=== PATIENT | female | born 1955 | race African-American/Black ===

== ENCOUNTER 2020-11-20 11:10 | Emergency (ER) | payer OTHER ==
[~2020-11-20] VITALS: Ht 154.9 cm; Wt 59.4 kg
--- NOTE | ~2020-11-20 | EKG ---
[address] [address] ELECTROCARDIOGRAM REPORT Name: WILBER MOSLEY Room #: [facility].#: [id number] Admission: Attend Phys: Discharge: Date of : 51 Report #: [id number] [facility] ED Test Date: 2020-11-20 Test Time: 11:28:24 Pat Name: WILBER MOSLEY Department: Room: Gender: F [employer]: [employer] : 1955 Requested By: Mitchell Bullock Order Number: [id number] MD: Measurements Intervals [place] Rate: 56 P: 53 [place]: 164 QRS: 42 QRSD: 86 T: 263 QT: 450 QTc: 435 Interpretive Statements Sinus rhythm LVH with secondary repolarization abnormality Probable anterior infarct, age indeterminate No previous ECG available for comparison [email or web address] By: [id number] Epiphany MD Alexus /EPI
[2020-11-20] MEDS ORDERED: LIPITOR 40 MG T40 M1 PO (11:25)
[2020-11-20] MEDS ORDERED: POTASSIUM CHLO10 MEQ PO (11:25)
[2020-11-20] MEDS ORDERED: LISINOPRIL10 MG PO (11:25)
[2020-11-20] MEDS ORDERED: CLOPIDOGREL75 MG PO (11:26)
[2020-11-20] MEDS ORDERED: FAMOTIDINE40 MG PO (11:26)
[2020-11-20] MEDS ORDERED: HYDROCHLOROTH12.5 M2 PO (11:26)
[2020-11-20] MEDS ORDERED: AMLODIPINE BESY10 MG PO (11:26)
[2020-11-20] MEDS ORDERED: METOPROLOL TART25 MG PO (11:28)
[2020-11-20 11:47] LABS: ABSOLUTE NEUTROPHILS 3.4 thou/uL (1.4-8.2); BASOPHILS 1.4 % (0.0-2.0); HEMATOCRIT 35.3 % (37.0-47.0); LYMPHOCYTES 21.7 % (24.0-44.0); MCH 30.7 pg (26.0-34.0); MCHC 33.9 g/dL (28.0-37.0); MCV 90.7 fL (80.0-100.0); MONOCYTES 6.8 % (1.0-8.0); PLATELET COUNT 358 thou/uL (150-400); POLYS 60.1 % (36.0-66.0); RDW 14.9 % (10.5-14.5); WBC 5.6 thou/uL (4.0-11.0)
[2020-11-20 11:56] LABS: ANION GAP 7 mmol/L (7-16); BUN 13 mg/dL (7-18); CALCIUM 9.7 mg/dL (8.5-10.1); CHLORIDE 97 mmol/L (98-107); CO2 26 mmol/L (21-32); GLUCOSE 95 mg/dL (74-106); POTASSIUM 4.2 mmol/L (3.5-5.1); SODIUM 130 mmol/L (136-145)
[2020-11-20 12:05] LABS: ALBUMIN 3.9 g/dL (3.4-5.0); SGOT 15 U/L (15-37); SGPT 19 U/L (14-59); TOTAL BILIRUBIN 0.4 mg/dL (0.2-1.0); TOTAL PROTEIN 8.4 g/dL (6.4-8.2); TROPONIN-I <0.06 ng/mL (<0.06)
[2020-11-20 13:58] LABS: URINE BILIRUBIN NEGATIVE (Negative); URINE BLOOD NEGATIVE (Negative); URINE CLARITY CLEAR; URINE COLOR YELLOW; URINE GLUCOSE-RANDOM* NEGATIVE (Negative); URINE KETONES NEGATIVE (Negative); URINE LEUKOCYTES-REFLEX NEGATIVE (Negative); URINE NITRITE-REFLEX NEGATIVE (Negative); URINE PROTEIN (DIPSTICK) NEGATIVE (Negative); URINE SPECIFIC GRAVITY 1.015 (1.005-1.035); URINE UROBILINOGEN 0.2 E.U./dl (0.2-1.0)
[2020-11-20] MEDS ORDERED: PROAIR HFA8.5 GM INH (14:16)
[2020-11-20] MEDS ORDERED: PREDNISONE 10 M10 M1 PO (14:16)
[2020-11-20] MEDS ORDERED: ZPAK PO (14:16)
[2020-11-20 14:26] VITALS: BP 140/63
== END 2020-11-20 14:26 | disposition home or self-care (01) ==
LOC: ER 11:10
PROVIDERS: Physician Assistant
DX: J44.1 Chronic obstructive pulmonary disease with (acute) exacerbation (principal); Z20.822 Contact with and (suspected) exposure to COVID-19; I50.9 Heart failure, unspecified; Z95.5 Presence of coronary angioplasty implant and graft; Z79.899 Other long term (current) drug therapy